=== PATIENT | male | born 1985 | race African-American/Black ===

== ENCOUNTER 2021-01-01 17:13 | Emergency (ER) | payer SELFPAY | END 2021-01-01 18:28 | disposition left against medical advice (07) | LOC: MW.ED 17:13 | DX: Z53.21 Procedure and treatment not carried out due to patient leaving prior to being seen by health care provider (principal) ==

== ENCOUNTER 2024-10-01 04:55 | Emergency (ER) | payer BC ==
[2024-10-01 05:16] LABS: BASOPHILS ABSOLUTE AUTO 0.06 K/uL (0.00-0.20); BASOPHILS PERCENT AUTO 0.5 % (0.0-1.0); EOSINOPHILS ABSOLUTE AUTO 0.13 K/uL (0.00-0.45); EOSINOPHILS PERCENT AUTO 1.1 % (0.0-6.0); HEMATOCRIT 48.3 % (42.0-52.0); HEMOGLOBIN 16.1 g/dL (14.0-18.0); IMMATURE GRAN ABSOLUTE AUTO 0.08 K/uL (0.00-0.05); IMMATURE GRAN PERCENT AUTO 0.7 % (0.0-0.4); LYMPHOCYTES ABSOLUTE AUTO 2.39 K/uL (1.00-4.80); LYMPHOCYTES PERCENT AUTO 19.6 % (24.0-44.0); MEAN CORPUSCULAR HEMOGLOBIN 30.7 pg (28.0-32.0); MEAN CORPUSCULAR HGB CONC 33.3 g/dL (32.0-36.0); MEAN PLATELET VOLUME 9.6 fL (9.4-12.4); MONOCYTES ABSOLUTE AUTO 1.09 K/uL (0.00-0.80); MONOCYTES PERCENT AUTO 8.9 % (0.0-8.0); NEUTROPHILS ABSOLUTE AUTO 8.44 K/uL (1.80-7.70); NEUTROPHILS PERCENT AUTO 69.2 % (41.0-71.0); PLATELET COUNT,PLT 264 K/uL (150-400); RED BLOOD CELL COUNT 5.25 M/uL (4.52-5.90); WHITE BLOOD CELL COUNT,WBC 12.19 K/uL (3.9-11.3)
[2024-10-01] MEDS: Acetaminophen 500 MG Tab PO ONE (05:19)
[2024-10-01] MEDS: Ketorolac 30 MG/ML SDV IVPUSH ONE (05:20)
[2024-10-01 05:33] LABS: CALCIUM 8.6 mg/dL (8.5-10.1); CARBON DIOXIDE,CO2 31.4 mmol/L (21.0-32.0); CREATININE 1.2 mg/dL (0.8-1.3); EST CRCL DRUG DOSING (CG) 88.02 mL/min
[2024-10-01] MEDS ORDERED: Orphenadrine 60 MG/2 ML Inj IM ONE (05:53)
[2024-10-01] MEDS: Cyclobenzaprine 10 MG Tab PO ONE (05:57)
== END 2024-10-01 07:11 | disposition home or self-care (01) ==
LOC: MW.ED 04:55
DX: S70.11XA Contusion of right thigh, initial encounter (principal); Z88.8 Allergy status to other drugs, medicaments and biological substances; Z79.899 Other long term (current) drug therapy; Z92.241 Personal history of systemic steroid therapy; X50.0XXA Overexertion from strenuous movement or load, initial encounter; Y93.02 Activity, running; Y99.0 Civilian activity done for income or pay
CPT/HCPCS: 36415; 73562; 73721; 80048; 85025; 96374; 99284; A9270; J1885; 99283